=== PATIENT | female | born 1990 | race Caucasian/White ===

== ENCOUNTER 2019-08-24 04:59 | Inpatient (IN) | payer BC ==
[2019-08-24] MEDS ORDERED: ceFAZolin 2 GM in Premix Bag 1 BAG IV ONE (05:19)
[2019-08-24] MEDS ORDERED: Nalbuphine 10 MG/1 ML Vial IVPUSH PRN (05:19)
[2019-08-24] MEDS ORDERED: Citric Acid/Sodium Citrate Solution 30 ML Cup PO ONE (05:19)
[2019-08-24] MEDS ORDERED: Metoclopramide 10 MG/2 ML SDV IVPUSH ONE (05:19)
[2019-08-24] MEDS ORDERED: Sodium Chloride 0.9% 10 ML Syringe FLUSH PRN (05:19)
[2019-08-24] MEDS ORDERED: Lactated Ringers 1,000 ML IV SCH (05:30)
--- NOTE | 2019-08-24 05:36 | PCM.LDHP ---
L&D History of Present Illness - General Date of Service: 08/24/19 Admit Problem/Dx: Patient Status Order with Admit Dx/Problem 08/24/19 05:19 Patient Status [ADT] Routine Admission Diagnosis/Problem Admission Diagnosis/Problem Source of Information: Patient History Limitations: Reports: No Limitations - History of Present Illness Introduction:: Patient is a 29 y/o at uncertain gestational age - between 38 0/7 wk by US yesterday to potentially at due date presents with SROM. Patient seen first time yesterday on L&D. New ob labs done yesterday and also dating US. Here yesterday as she thought she was about due and had about 3 contractions. Was only 0.5 cm dilated. Was discharged home to present for routine care. Now presents with SROM which occurred about 2 hours ago. 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 11/28/2013 - 34.5 wks twin girl , 4 lbs 14 oz, 4 lbs 16 oz. 07/22/2019 - 37 wks c- section, 7 lbs. Current - Past Surgical History Female Surgical History: Reports: Section (x3) Social & Family History - Tobacco Use Smoking Status *Q: Never Smoker - Alcohol Use Alcohol Use History: No - Recreational Drug Use Recreational Drug Use: No H&P Review of Systems - Review of Systems: Review Of Systems: See Below General: Reports: No Symptoms Pulmonary: Reports: No Symptoms Cardiovascular: Reports: No Symptoms Gastrointestinal: Reports: Abdominal Pain (with contractions) Genitourinary: Reports: No Symptoms Musculoskeletal: Reports: No Symptoms Psychiatric: Reports: No Symptoms L&D Exam - Exam Exam: See Below - OB Specific Contraction Intensity: Moderate Movement: Active Heart Tones: Present Heart Tones per Min: 135 Heart Rate (FHR) Variability: Moderate (6-25 bmp) Presentation: Vertex - Exam General: Alert, Oriented, Cooperative Lungs: Clear to Auscultation, Normal Respiratory Effort Cardiovascular: Regular Rate, Regular Rhythm GI/Abdominal Exam: Soft, Non-Tender Genitourinary: Normal external exam, Other (grossly ruptured) Extremities: Normal Inspection Skin: Warm, Dry, Intact - Problem List (1) History of SNOMED Code(s): 057267458 ICD Code: Z98.891 - HISTORY OF UTERINE SCAR FROM PREVIOUS SURGERY Status: Acute Current Visit: No (2) No care in current SNOMED Code(s): 351389386 ICD Code: O09.30 - SUPRVSN OF PREG W INSUFFICIENT ANTENAT CARE, UNSP TRIMESTER Status: Acute Current Visit: No Qualifiers: (3) SROM (spontaneous rupture of membranes) SNOMED Code(s): 606770933 ICD Code: TUH7457 - Status: Acute Current Visit: Yes Problem List Initiated/Reviewed/Updated: Yes Orders Last 24hrs: Active Orders 24 hr Category Date Time Status Patient Status [ADT] Routine ADT 08/24/19 05:19 Active Communication Order [RC] ROUTINE Care 08/24/19 05:19 Active Heart Tones [RC] PER UNIT ROUTINE Care 08/24/19 05:19 Active Non Stress Test [RC] PER UNIT ROUTINE Care 08/24/19 05:19 Active Peripheral IV Care [RC] . DIRECTED Care 08/24/19 05:23 Active Procedure Site Prep Instruct [RC] ASDIRECTED Care 08/24/19 05:19 Active Verify Patient Consent Obtain [RC] PER UNIT ROUTINE Care 08/24/19 05:19 Active Vital Signs [RC] PFP Care 08/24/19 05:19 Active RAPID PLASMA REAGIN,RPR [CHEM] Routine Lab 08/24/19 05:19 Stop Req Citric Acid/Sodium Citrate [Bicitra Solution] Med 08/24/19 05:19 Once 30 ml PO ONETIME ONE Lactated Ringers [Ringers, Lactated] 1,000 ml Med 08/24/19 05:30 Active IV ASDIRECTED Nalbuphine [Nubain] Med 08/24/19 05:19 Active 10 mg IVPUSH Q2H PRN Sodium Chloride 0.9% [Saline Flush] Med 08/24/19 05:19 Active 10 ml FLUSH ASDIRECTED PRN ceFAZolin [Ancef] 2 gm Med 08/24/19 05:19 Active Premix Bag 1 bag IV ONETIME Peripheral IV Insertion Adult [OM.PC] Routine Oth 08/24/19 05:19 Ordered Schedule Procedure [COMM] Per Unit Routine Oth 08/24/19 05:19 Ordered Resuscitation Status Routine Resus Stat 08/24/19 05:19 Ordered Medication Orders Cefazolin Sodium/Dextrose 2 gm (/ Premix) 50 mls @ 100 mls/hr IV ONETIME ONE Stop: 08/24/19 05:48 Lactated Ringer's (Ringers, Lactated) 1,000 mls @ 125 mls/hr IV ASDIRECTED JESUS Nalbuphine HCl (Nubain) 10 mg IVPUSH Q2H PRN PRN Reason: Pain Sodium Chloride (Saline Flush) 10 ml FLUSH ASDIRECTED PRN PRN Reason: Keep Vein Open Assessment/Plan Comment:: SROM in setting of 3 prior * Ancef and Azithromycin 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
[2019-08-24] MEDS ORDERED: Azithromycin 500 MG in Sodium Chloride 0.9% 250 ML IV ONE (05:39)
[2019-08-24] MEDS ORDERED: Oxytocin 10 Units/1 ML SDV ONE (05:45)
[2019-08-24] MEDS ORDERED: ceFAZolin 1 GM Vial ONE (05:45)
[2019-08-24] MEDS ORDERED: Morphine PF 10 MG/10 ML SDV ONE (05:45)
--- NOTE | 2019-08-24 06:19 | PCM.PREANE ---
Preanesthetic Assessment - Procedure Proposed Procedure: Repeat - Anesthesia/Transfusion/Family Hx Anesthesia History: Prior Anesthesia Without Reaction Family History of Anesthesia Reaction: No Transfusion History: No Prior Transfusion(s) Anesthesia/Transfusion Comment: No previous problems with anesthesia or with intubation per patient - Review of Systems General: No Symptoms Pulmonary: No Symptoms Cardiovascular: No Symptoms Gastrointestinal: No Symptoms Other: Reports: None - Physical Assessment NPO Status Date: 08/24/19 (FS) Vital Signs: 126/80, 99, 16, 96% ASA Class: 1 Mental Status: Alert & Oriented x3 Airway Class: Mallampati = 2 Dentition: Reports: Normal Dentition ROM/Head Extension: Full Lungs: Clear to Auscultation, Normal Respiratory Effort Cardiovascular: Regular Rate, Regular Rhythm - Allergies Allergies/Adverse Reactions: Allergies Allergy/AdvReac Type Severity Reaction Status Date / Time No Known Allergies Allergy Verified 08/23/19 17:10 - Blood Blood Available: Yes Product(s) Available: PRBC - Anesthesia Plan Pre-Op Medication Ordered: Antacids - Acknowledgements Anesthesia Type Planned: Spinal Pt an Appropriate Candidate for the Planned Anesthesia: Yes Alternatives and Risks of Anesthesia Discussed w Pt/Guardian: Yes Pt/Guardian Understands and Agrees with Anesthesia Plan: Yes 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 11/28/2013 - 34.5 wks twin girl , 4 lbs 14 oz, 4 lbs 16 oz. 07/22/2019 - 37 wks c- section, 7 lbs. Current - Past Surgical History Female Surgical History: Reports: Section (x3) - SUBSTANCE USE Smoking Status *Q: Never Smoker Recreational Drug Use History: No - HOME MEDS Home Medications: Home Meds Vits #93/Iron Fum/FA [ Formula Tablet] 1 each PO DAILY [History] - CURRENT (IN HOUSE) MEDS Current Meds: Current Medications Lactated Ringer's (Ringers, Lactated) 1,000 mls @ 125 mls/hr IV ASDIRECTED JESUS Last Admin: 08/24/19 05:35 Dose: 999 mls/hr Azithromycin 500 mg/ Sodium (Chloride) 250 mls @ 250 mls/hr IV ONETIME ONE Stop: 08/24/19 06:38 Last Admin: 08/24/19 05:54 Dose: 250 mls/hr Nalbuphine HCl (Nubain) 10 mg IVPUSH Q2H PRN PRN Reason: Pain Sodium Chloride (Saline Flush) 10 ml FLUSH ASDIRECTED PRN PRN Reason: Keep Vein Open Discontinued Medications Cefazolin Sodium (Ancef) Confirm Administered Dose 2 gm .ROUTE .STK-MED ONE Stop: 08/24/19 05:46 Citric Acid/Sodium Citrate (Bicitra Solution) 30 ml PO ONETIME ONE Stop: 08/24/19 05:20 Last Admin: 08/24/19 05:45 Dose: 30 ml Cefazolin Sodium/Dextrose 2 gm (/ Premix) 50 mls @ 100 mls/hr IV ONETIME ONE Stop: 08/24/19 05:48 Metoclopramide HCl (Reglan) 10 mg IVPUSH ONETIME ONE Stop: 08/24/19 05:20 Last Admin: 08/24/19 05:45 Dose: 10 mg Morphine Sulfate (Duramorph Pf) Confirm Administered Dose 10 mg .ROUTE .STK-MED ONE Stop: 08/24/19 05:46 Oxytocin (Pitocin) Confirm Administered Dose 20 unit .ROUTE .STK-MED ONE Stop: 08/24/19 05:46
[2019-08-24] MEDS ORDERED: Ketorolac 30 MG/ML SDV ONE (06:30)
[2019-08-24] MEDS ORDERED: Dexamethasone 4 MG/ML SDV ONE (06:34)
[2019-08-24] MEDS ORDERED: Ondansetron 4 MG/2 ML SDV ONE (06:34)
--- NOTE | 2019-08-24 07:02 | PCM.OPNOTE ---
- General Post-Op/Procedure Note Date of Surgery/Procedure: 08/24/19 Operative Procedure(s): Repeat low transverse Findings: Minimal adhesive disease between the rectus and fascia. Uterine window about 3 x 4 cm at left aspect of uterus with BBOW present. Can see parts moving underneath. Otherwise extremely thin lower uterine segment. Normal appearance of ovaries and fallopian tubes. Baby girl in a vertex presentation with eight of 6 lbs 14 oz and APGARS of 8 & 9. IF BECOMES AGAIN WOULD RECOMMEND EARLY TERM DELIVERY DUE TO FINDINGS IN OR Pre Op Diagnosis: Unknown gestational age 38 wks - 40 wks likely. No care. History of x3. SROM Post-Op Diagnosis: Same Anesthesia Technique: Spinal Primary Surgeon: Ronel Arciniega Secondary Surgeon: Gino Emery Anesthesia Provider: Neeraj Streeter Reason Warranty Manager Was Necessary: Speed, safety of procedure Pathology: Cord blood collected. Placenta discarded Fluid Replacement, Intraop: 1,750 Output, Urine Amount: 175 EBL in mLs: 500 Complications: None Condition: Good Free Text/Narrative:: The risks, benefits, indications, potential complications, and alternatives were explained to the patient and informed consent obtained. After induction of anesthesia, the patient was placed in a supine position and then draped and prepped in the usual sterile manner. A Pfannenstiel incision was made and carried down through the subcutaneous tissue to the fascia. Fascial incision was made and extended transversely. The fascia was from the underlying rectus tissue superiorly and inferiorly. The peritoneum was identified and entered. Peritoneal incision was extended longitudinally. No bladder flap made given finding of uterine window. A low transverse uterine incision was made sharply next to seen uterine window with a scalpel and extended bluntly in a cephalocaudad direction. A baby girl was delivered from a vertex presentation with APGARS as above. After the umbilical cord was clamped and cut cord blood was obtained for evaluation. The placenta was removed intact and appeared normal. The uterus was exteriorized and cleared of clots. The fallopian tubes and ovaries appeared normal. The uterine incision was closed with running locked sutures of 0 Vicryl. Hemostasis noted. The uterus was then placed back into the abdomen. The infracolic gutters were cleared of blood clots. The fascia was then reapproximated with running sutures of 0 Vicryl. The subcutaneous tissue was irrigated with sterile warm normal saline, hemostasis obtained with cautery. This layer was also closed with a running 0 Vicryl. The skin was reapproximated with running Subcuticular 4-0 monocryl sutures. Instrument, sponge, and needle counts were correct prior the abdominal closure and at the conclusion of the case.
[2019-08-24] MEDS ORDERED: diphenhydrAMINE 50 MG/ML SDV IVPUSH PRN ×2 (07:05→09:02)
[2019-08-24] MEDS ORDERED: fentaNYL 100 MCG/2 ML SDV IVPUSH PRN (07:05)
[2019-08-24] MEDS ORDERED: Ondansetron 4 MG/2 ML SDV IVPUSH PRN (07:05)
--- NOTE | 2019-08-24 07:05 | PCM.POSTAN ---
POST ANESTHESIA ASSESSMENT - MENTAL STATUS Mental Status: Alert, Oriented - RESPIRATORY Respiratory Status: Respiratory Rate WNL, Airway Patent, O2 Saturation Stable - CARDIOVASCULAR CV Status: Pulse Rate WNL, Blood Pressure Stable - GASTROINTESTINAL GI Status: No Symptoms - PAIN Pain Score: 0 - POST OP HYDRATION Hydration Status: Adequate & Stable (Recovering as expect. No concerns at this time.)
[2019-08-24] MEDS ORDERED: ePHEDrine 50 MG/ML SDV IVPUSH PRN (09:02)
[2019-08-24] MEDS ORDERED: Ondansetron 4 MG/2 ML SDV IV PRN (09:02)
[2019-08-24] MEDS ORDERED: Dextrose 5%-Lactated Ringers 1,000 ML IV SCH (09:02)
[2019-08-24] MEDS: Ketorolac 30 MG/ML SDV IVPUSH SCH ×3 (16:38→22:26)
[2019-08-24] MEDS: Acetaminophen/oxyCODONE 325-5 MG Tab PO PRN (19:45)
[2019-08-24] MEDS: Ibuprofen 800 MG Tab PO SCH (22:30)
[2019-08-24] MEDS ORDERED: Calcium Carbonate 500 MG Tab.Chew PO PRN (23:49)
[2019-08-25] MEDS: Acetaminophen/oxyCODONE 325-5 MG Tab PO PRN ×3 (04:20→18:02)
[2019-08-25] MEDS: Ibuprofen 800 MG Tab PO SCH (05:55)
--- NOTE | 2019-08-25 06:33 | PCM.PNPP ---
- General Info Date of Service: 08/25/19 Functional Status: Reports: Pain Controlled, Tolerating Diet, Ambulating, Urinating - Review of Systems General: Reports: No Symptoms Pulmonary: Reports: No Symptoms Cardiovascular: Reports: No Symptoms Gastrointestinal: Reports: No Symptoms Genitourinary: Reports: No Symptoms Musculoskeletal: Reports: No Symptoms Neurological: Reports: No Symptoms - Patient Data Vital Signs - Most Recent: Last Vital Signs Temp 36.3 C 08/25/19 00:01 Pulse 93 08/25/19 00:40 Resp 16 08/25/19 05:00 BP 110/60 08/25/19 00:01 Pulse Ox 97 08/25/19 05:00 Weight - Most Recent: 80.286 kg I&O - Last 24 Hours: Intake & Output 08/24/19 08/24/19 08/25/19 14:59 22:59 06:59 Intake Total 2690 Output Total 275 750 350 Balance 7565 -750 -350 Med Orders - Current: Current Medications Calcium Carbonate/Glycine (Tums) 1,000 mg PO Q2HR PRN PRN Reason: Indigestion Last Admin: 08/24/19 23:56 Dose: 1,000 mg Diphenhydramine HCl (Benadryl) 25 mg IVPUSH Q6H PRN PRN Reason: Pruritis Last Admin: 08/24/19 10:49 Dose: 25 mg Diphenhydramine HCl (Benadryl) 25 mg IVPUSH Q6H PRN PRN Reason: Itching or Nausea Ephedrine Sulfate (Ephedrine Sulfate) 5 mg IVPUSH SEECOMMENT PRN PRN Reason: Other Fentanyl (Sublimaze) 50 mcg IVPUSH Q5M PRN PRN Reason: Pain Ibuprofen (Motrin) 600 mg PO Q6H PRN PRN Reason: mild pain or fever Ibuprofen (Motrin) 800 mg PO Q8H JESUS Last Admin: 08/25/19 05:55 Dose: 800 mg Ondansetron HCl (Zofran) 4 mg IVPUSH ONETIME PRN PRN Reason: Nausea/Vomiting Ondansetron HCl (Zofran) 4 mg IV Q8H PRN PRN Reason: Nausea/Vomiting Oxycodone/Acetaminophen (Percocet 325-5 Mg) 2 tab PO Q4H PRN PRN Reason: Pain (severe 7-10) Last Admin: 08/25/19 04:20 Dose: 1 tab Discontinued Medications Cefazolin Sodium (Ancef) Confirm Administered Dose 2 gm .ROUTE .STK-MED ONE Stop: 08/24/19 05:46 Citric Acid/Sodium Citrate (Bicitra Solution) 30 ml PO ONETIME ONE Stop: 08/24/19 05:20 Last Admin: 08/24/19 05:45 Dose: 30 ml Dexamethasone (Dexamethasone) Confirm Administered Dose 4 mg .ROUTE .STK-MED ONE Stop: 08/24/19 06:35 Cefazolin Sodium/Dextrose 2 gm (/ Premix) 50 mls @ 100 mls/hr IV ONETIME ONE Stop: 08/24/19 05:48 Lactated Ringer's (Ringers, Lactated) 1,000 mls @ 125 mls/hr IV ASDIRECTED [facility] Last Admin: 08/24/19 05:35 Dose: 999 mls/hr Azithromycin 500 mg/ Sodium (Chloride) 250 mls @ 250 mls/hr IV ONETIME ONE Stop: 08/24/19 06:38 Last Admin: 08/24/19 05:54 Dose: 250 mls/hr Dextrose/Lactated Ringer's (Dextrose 5%-Lactated Ringers) 1,000 mls @ 125 mls/ hr IV ASDIRECTED [facility] Stop: 08/24/19 17:01 Last Admin: 08/24/19 09:17 Dose: 125 mls/hr Ketorolac Tromethamine (Toradol) Confirm Administered Dose 30 mg .ROUTE .STK- MED ONE Stop: 08/24/19 06:31 Ketorolac Tromethamine (Toradol) 30 mg IVPUSH Q6H [facility] Stop: 08/25/19 00:31 Last Admin: 08/24/19 22:26 Dose: Not Given Metoclopramide HCl (Reglan) 10 mg IVPUSH ONETIME ONE Stop: 08/24/19 05:20 Last Admin: 08/24/19 05:45 Dose: 10 mg Morphine Sulfate (Duramorph Pf) Confirm Administered Dose 10 mg .ROUTE .STK-MED ONE Stop: 08/24/19 05:46 Nalbuphine HCl (Nubain) 10 mg IVPUSH Q2H PRN PRN Reason: Pain Ondansetron HCl (Zofran) Confirm Administered Dose 4 mg .ROUTE .STK-MED ONE Stop: 08/24/19 06:35 Oxytocin (Pitocin) Confirm Administered Dose 20 unit .ROUTE .STK-MED ONE Stop: 08/24/19 05:46 Sodium Chloride (Saline Flush) 10 ml FLUSH ASDIRECTED PRN PRN Reason: Keep Vein Open - Infant Interaction Disposition, : [place] in Room with Family Infant Interaction: Holding Infant Infant Feeding: Breastfed Infant; Nursed Well Support Person: Significant Other - Recovery Exam Fundal Tone: Firm Fundal Level: 2 Fingerbreadths Below Umbilicus Fundal Placement: Midline Lochia Amount: Scant, Small Lochia Color: Rubra/Red Perineum Description: Intact, Minimal Bruising/Swelling Episiotomy/Laceration: None Bladder Status: Voiding Urinary Elimination: Voided - Exam General: Alert, Oriented, Cooperative Lungs: Clear to Auscultation, Normal Respiratory Effort Cardiovascular: Regular Rate, Regular Rhythm GI/Abdominal Exam: Soft, Non-Tender Extremities: Normal Inspection Skin: Warm, Dry, Intact Wound/Incisions: Healing Well, Drainage (small amount of serosanguinous drainage ) - Problem List & Annotations (1) History of SNOMED Code(s): 448699383 Code(s): Z98.891 - HISTORY OF UTERINE SCAR FROM PREVIOUS SURGERY Status: Acute Current Visit: No (2) No care in current SNOMED Code(s): 768612154 Code(s): O09.30 - SUPRVSN OF PREG W INSUFFICIENT ANTENAT CARE, UNSP TRIMESTER Status: Acute Current Visit: No Qualifiers: (3) SROM (spontaneous rupture of membranes) SNOMED Code(s): 063350410 Code(s): DOR5859 - Status: Acute Current Visit: Yes (4) Dehiscence of uterine wound SNOMED Code(s): 64671614 Code(s): O90.0 - DISRUPTION OF DELIVERY WOUND Status: Acute Current Visit: Yes (5) S/P repeat low transverse SNOMED Code(s): 523380717, 20176041, 891558336, 905266393, 562099843 Code(s): Z98.891 - HISTORY OF UTERINE SCAR FROM PREVIOUS SURGERY Status: Acute Current Visit: Yes - Problem List Review Problem List Initiated/Reviewed/Updated: Yes - My Orders Last 24 Hours: My Active Orders 08/24/19 09:02 Activity as Tolerated [RC] .Routine Antiembolic Devices [RC] PER UNIT ROUTINE Communication Order [RC] PER UNIT ROUTINE Intake and Output [RC] Q4H Notify Provider Intake and Out [RC] ASDIRECTED RT Incentive Spirometry [RC] Q2HWA Vital Signs [RC] PER UNIT ROUTINE Acetaminophen/oxyCODONE [Percocet 325-5 MG] 2 tab PO Q4H PRN Ondansetron [Zofran] 4 mg IV Q8H PRN diphenhydrAMINE [Benadryl] 25 mg IVPUSH Q6H PRN ePHEDrine [ePHEDrine sulfate] 5 mg IVPUSH SEECOMMENT PRN Assess Lochia [WOMSER] Per Unit Routine Assess Uterine Involution [WOMSER] Per Unit Routine Breast Pump [WOMSER] Per Unit Routine Medication Administration Instruction [OM.PC] Routine Peripheral IV Discontinue [OM.PC] Routine Sequential Compression Device [OM.PC] Per Unit Routine 08/24/19 22:30 Ibuprofen [Motrin] 800 mg PO Q8H 08/24/19 23:49 Calcium Carbonate [Tums] 1,000 mg PO Q2HR PRN 08/24/19 Breakfast Regular Diet [DIET] 08/25/19 05:50 CBC W/O DIFF,HEMOGRAM [HEME] AM 08/25/19 06:30 Ibuprofen [Motrin] 600 mg PO Q6H PRN 08/25/19 07:00 Urinary Catheter Removal [RC] Per Unit Routine - Assessment Assessment:: POD#1 - Plan Plan:: * Routine cares * Encourage breast feeding * Discharge home in 1-2 days
--- NOTE | 2019-08-25 09:54 | PCM48HPAN ---
Post Anesthesia Note - EVALUATION WITHIN 48HRS OF ANESTHETIC Vital Signs in Normal Range: Yes Patient Participated in Evaluation: Yes Respiratory Function Stable: Yes Airway Patent: Yes Cardiovascular Function Stable: Yes Hydration Status Stable: Yes Pain Control Satisfactory: Yes Nausea and Vomiting Control Satisfactory: Yes Mental Status Recovered: Yes Vital Signs: Last Vital Signs Temp 36.7 C 08/25/19 06:12 Pulse 78 08/25/19 06:12 Resp 16 08/25/19 06:12 BP 119/69 08/25/19 06:12 Pulse Ox 100 08/25/19 06:12
[2019-08-25] MEDS: Ibuprofen 600 MG Tab PO PRN ×2 (14:48→21:59)
[2019-08-25] MEDS ORDERED: Docusate Sodium 100 MG Cap PO PRN (21:44)
[2019-08-26] MEDS: Acetaminophen/oxyCODONE 325-5 MG Tab PO PRN ×2 (00:14→07:21)
--- NOTE | 2019-08-26 06:54 | PCM.DCSUM1 ---
Discharge Summary - Discharge Data Discharge Date: 08/26/19 Discharge Disposition: Home, Self-Care 01 Condition: Good - Referral to Home Health Primary Care Physician: Ronel Arciniega MD - Discharge Diagnosis/Problem(s) (1) History of SNOMED Code(s): 680637042 ICD Code: Z98.891 - HISTORY OF UTERINE SCAR FROM PREVIOUS SURGERY Status: Acute (2) No care in current SNOMED Code(s): 894941108 ICD Code: O09.30 - SUPRVSN OF PREG W INSUFFICIENT ANTENAT CARE, UNSP TRIMESTER Status: Acute Qualifiers: Trimester: third trimester (3) SROM (spontaneous rupture of membranes) SNOMED Code(s): 541224416 ICD Code: MXN8781 - Status: Acute (4) Dehiscence of uterine wound SNOMED Code(s): 30403990 ICD Code: O90.0 - DISRUPTION OF DELIVERY WOUND Status: Acute (5) S/P repeat low transverse SNOMED Code(s): 912405408, 64073292, 451432471, 961856445, 442493176 ICD Code: Z98.891 - HISTORY OF UTERINE SCAR FROM PREVIOUS SURGERY Status: Acute - Patient Summary/Data Operative Procedure(s) Performed: Repeat low transverse Complications: None Consults: None Recommended Follow-up Testing/Procedures: Follow up in 1 week for incision check Hospital Course: Patient is a 29 y/o who had no care in current estimated to be between 38-41 wks who presented with SROM in setting of 3 prior . Taken for repeat notable for significant uterine window and thinning of MARLENE. Surgery was uncomplicated. Post op she did well and was meeting all goals by POD#2. She was discharged home per her request - Patient Instructions Diet: Regular Diet as Tolerated Activity: No Lifting Over 10 Pounds Activity, Other: Pelvic rest for 6 weeks Driving: Do Not Drive (While taking narcotics ) Showering/Bathing: May Shower, No Tub Bathing/Swimming Wound/Incision Care: Keep Operative Site/Wound Site Clean and Dry Notify Provider of: Fever, Increased Pain, Swelling and Redness, Drainage, Nausea and/or Vomiting - Discharge Plan *PRESCRIPTION DRUG MONITORING PROGRAM REVIEWED*: No *COPY OF PRESCRIPTION DRUG MONITORING REPORT IN PATIENT CLARISSA: No Prescriptions/Med Rec: Acetaminophen/oxyCODONE [Percocet 325-5 MG] 2 tab PO Q4H PRN #20 tablet PRN Reason: Pain (Severe 7-10) Home Medications: Home Meds Vits #93/Iron Fum/FA [ Formula Tablet] 1 each PO DAILY [History] Acetaminophen/oxyCODONE [Percocet 325-5 MG] 2 tab PO Q4H PRN #20 tablet [Rx] Ibuprofen [Motrin] 600 mg PO Q6H PRN tablet 08/26/19 [Rx] Patient Handouts: Delivery, Care After Referrals: Ronel Arciniega MD [Primary Care Provider] - (1 week for incision check ) - Discharge Summary/Plan Comment DC Time >30 min.: No - Patient Data Vitals - Most Recent: Last Vital Signs Temp 36.8 C 08/26/19 04:13 Pulse 80 08/26/19 04:13 Resp 16 08/26/19 04:13 BP 102/52 L 08/26/19 04:13 Pulse Ox 97 08/26/19 04:13 Weight - Most Recent: 80.286 kg I&O - Last 24 hours: Intake & Output 08/25/19 08/25/19 08/26/19 14:59 22:59 06:59 Intake Total 180 400 Output Total 450 500 Balance -270 -100 Lab Results - Last 24 hrs: Laboratory Results - last 24 hr 08/25/19 Range/Units 05:50 WBC 11.78 H (3.98-10.04) K/mm3 RBC 3.35 L (3.98-5.22) M/mm3 Hgb 8.8 L (11.2-15.7) gm/dl Hct 28.3 L (34.1-44.9) % MCV 84.5 (79.4-94.8) fl MCH 26.3 (25.6-32.2) pg MCHC 31.1 L (32.2-35.5) g/dl RDW Std Deviation 44.5 (36.4-46.3) fL Plt Count 190 (182-369) K/mm3 MPV 9.6 (9.4-12.3) fl Med Orders - Current: Current Medications Calcium Carbonate/Glycine (Tums) 1,000 mg PO Q2HR PRN PRN Reason: Indigestion Last Admin: 08/24/19 23:56 Dose: 1,000 mg Diphenhydramine HCl (Benadryl) 25 mg IVPUSH Q6H PRN PRN Reason: Pruritis Last Admin: 08/24/19 10:49 Dose: 25 mg Diphenhydramine HCl (Benadryl) 25 mg IVPUSH Q6H PRN PRN Reason: Itching or Nausea Docusate Sodium (Colace) 100 mg PO BID PRN PRN Reason: Constipation Last Admin: 08/25/19 21:58 Dose: 100 mg Ephedrine Sulfate (Ephedrine Sulfate) 5 mg IVPUSH SEECOMMENT PRN PRN Reason: Other Fentanyl (Sublimaze) 50 mcg IVPUSH Q5M PRN PRN Reason: Pain Ibuprofen (Motrin) 600 mg PO Q6H PRN PRN Reason: mild pain or fever Last Admin: 08/25/19 21:59 Dose: 600 mg Ondansetron HCl (Zofran) 4 mg IVPUSH ONETIME PRN PRN Reason: Nausea/Vomiting Ondansetron HCl (Zofran) 4 mg IV Q8H PRN PRN Reason: Nausea/Vomiting Oxycodone/Acetaminophen (Percocet 325-5 Mg) 2 tab PO Q4H PRN PRN Reason: Pain (severe 7-10) Last Admin: 08/26/19 00:14 Dose: 2 tab Discontinued Medications Cefazolin Sodium (Ancef) Confirm Administered Dose 2 gm .ROUTE .STK-MED ONE Stop: 08/24/19 05:46 Citric Acid/Sodium Citrate (Bicitra Solution) 30 ml PO ONETIME ONE Stop: 08/24/19 05:20 Last Admin: 08/24/19 05:45 Dose: 30 ml Dexamethasone (Dexamethasone) Confirm Administered Dose 4 mg .ROUTE .STK-MED ONE Stop: 08/24/19 06:35 Cefazolin Sodium/Dextrose 2 gm (/ Premix) 50 mls @ 100 mls/hr IV ONETIME ONE Stop: 08/24/19 05:48 Last Admin: 08/25/19 10:57 Dose: Not Given Lactated Ringer's (Ringers, Lactated) 1,000 mls @ 125 mls/hr IV ASDIRECTED [facility] Last Admin: 08/24/19 05:35 Dose: 999 mls/hr Azithromycin 500 mg/ Sodium (Chloride) 250 mls @ 250 mls/hr IV ONETIME ONE Stop: 08/24/19 06:38 Last Admin: 08/24/19 05:54 Dose: 250 mls/hr Dextrose/Lactated Ringer's (Dextrose 5%-Lactated Ringers) 1,000 mls @ 125 mls/ hr IV ASDIRECTED [facility] Stop: 08/24/19 17:01 Last Admin: 08/24/19 09:17 Dose: 125 mls/hr Ibuprofen (Motrin) 800 mg PO Q8H [facility] Last Admin: 08/25/19 05:55 Dose: 800 mg Ketorolac Tromethamine (Toradol) Confirm Administered Dose 30 mg .ROUTE .STK- MED ONE Stop: 08/24/19 06:31 Ketorolac Tromethamine (Toradol) 30 mg IVPUSH Q6H [facility] Stop: 08/25/19 00:31 Last Admin: 08/24/19 22:26 Dose: Not Given Metoclopramide HCl (Reglan) 10 mg IVPUSH ONETIME ONE Stop: 08/24/19 05:20 Last Admin: 08/24/19 05:45 Dose: 10 mg Morphine Sulfate (Duramorph Pf) Confirm Administered Dose 10 mg .ROUTE .STK-MED ONE Stop: 08/24/19 05:46 Nalbuphine HCl (Nubain) 10 mg IVPUSH Q2H PRN PRN Reason: Pain Ondansetron HCl (Zofran) Confirm Administered Dose 4 mg .ROUTE .STK-MED ONE Stop: 08/24/19 06:35 Oxytocin (Pitocin) Confirm Administered Dose 20 unit .ROUTE .STK-MED ONE Stop: 08/24/19 05:46 Sodium Chloride (Saline Flush) 10 ml FLUSH ASDIRECTED PRN PRN Reason: Keep Vein Open
--- NOTE | 2019-08-26 06:54 | PCM.PNPP ---
- General Info Date of Service: 08/26/19 Functional Status: Reports: Pain Controlled, Tolerating Diet, Ambulating, Urinating - Review of Systems General: Reports: No Symptoms Pulmonary: Reports: No Symptoms Cardiovascular: Reports: No Symptoms Gastrointestinal: Reports: Abdominal Pain (managed with medications ) Genitourinary: Reports: No Symptoms Musculoskeletal: Reports: No Symptoms Neurological: Reports: No Symptoms - Patient Data Vital Signs - Most Recent: Last Vital Signs Temp 36.8 C 08/26/19 04:13 Pulse 80 08/26/19 04:13 Resp 16 08/26/19 04:13 BP 102/52 L 08/26/19 04:13 Pulse Ox 97 08/26/19 04:13 Weight - Most Recent: 80.286 kg I&O - Last 24 Hours: Intake & Output 08/25/19 08/25/19 08/26/19 14:59 22:59 06:59 Intake Total 180 400 Output Total 450 500 Balance -270 -100 Lab Results - Last 24 Hours: Laboratory Results - last 24 hr 08/25/19 Range/Units 05:50 WBC 11.78 H (3.98-10.04) K/mm3 RBC 3.35 L (3.98-5.22) M/mm3 Hgb 8.8 L (11.2-15.7) gm/dl Hct 28.3 L (34.1-44.9) % MCV 84.5 (79.4-94.8) fl MCH 26.3 (25.6-32.2) pg MCHC 31.1 L (32.2-35.5) g/dl RDW Std Deviation 44.5 (36.4-46.3) fL Plt Count 190 (182-369) K/mm3 MPV 9.6 (9.4-12.3) fl Med Orders - Current: Current Medications Calcium Carbonate/Glycine (Tums) 1,000 mg PO Q2HR PRN PRN Reason: Indigestion Last Admin: 08/24/19 23:56 Dose: 1,000 mg Diphenhydramine HCl (Benadryl) 25 mg IVPUSH Q6H PRN PRN Reason: Pruritis Last Admin: 08/24/19 10:49 Dose: 25 mg Diphenhydramine HCl (Benadryl) 25 mg IVPUSH Q6H PRN PRN Reason: Itching or Nausea Docusate Sodium (Colace) 100 mg PO BID PRN PRN Reason: Constipation Last Admin: 08/25/19 21:58 Dose: 100 mg Ephedrine Sulfate (Ephedrine Sulfate) 5 mg IVPUSH SEECOMMENT PRN PRN Reason: Other Fentanyl (Sublimaze) 50 mcg IVPUSH Q5M PRN PRN Reason: Pain Ibuprofen (Motrin) 600 mg PO Q6H PRN PRN Reason: mild pain or fever Last Admin: 08/25/19 21:59 Dose: 600 mg Ondansetron HCl (Zofran) 4 mg IVPUSH ONETIME PRN PRN Reason: Nausea/Vomiting Ondansetron HCl (Zofran) 4 mg IV Q8H PRN PRN Reason: Nausea/Vomiting Oxycodone/Acetaminophen (Percocet 325-5 Mg) 2 tab PO Q4H PRN PRN Reason: Pain (severe 7-10) Last Admin: 08/26/19 00:14 Dose: 2 tab Discontinued Medications Cefazolin Sodium (Ancef) Confirm Administered Dose 2 gm .ROUTE .STK-MED ONE Stop: 08/24/19 05:46 Citric Acid/Sodium Citrate (Bicitra Solution) 30 ml PO ONETIME ONE Stop: 08/24/19 05:20 Last Admin: 08/24/19 05:45 Dose: 30 ml Dexamethasone (Dexamethasone) Confirm Administered Dose 4 mg .ROUTE .STK-MED ONE Stop: 08/24/19 06:35 Cefazolin Sodium/Dextrose 2 gm (/ Premix) 50 mls @ 100 mls/hr IV ONETIME ONE Stop: 08/24/19 05:48 Last Admin: 08/25/19 10:57 Dose: Not Given Lactated Ringer's (Ringers, Lactated) 1,000 mls @ 125 mls/hr IV ASDIRECTED [facility] Last Admin: 08/24/19 05:35 Dose: 999 mls/hr Azithromycin 500 mg/ Sodium (Chloride) 250 mls @ 250 mls/hr IV ONETIME ONE Stop: 08/24/19 06:38 Last Admin: 08/24/19 05:54 Dose: 250 mls/hr Dextrose/Lactated Ringer's (Dextrose 5%-Lactated Ringers) 1,000 mls @ 125 mls/ hr IV ASDIRECTED [facility] Stop: 08/24/19 17:01 Last Admin: 08/24/19 09:17 Dose: 125 mls/hr Ibuprofen (Motrin) 800 mg PO Q8H [facility] Last Admin: 08/25/19 05:55 Dose: 800 mg Ketorolac Tromethamine (Toradol) Confirm Administered Dose 30 mg .ROUTE .STK- MED ONE Stop: 08/24/19 06:31 Ketorolac Tromethamine (Toradol) 30 mg IVPUSH Q6H [facility] Stop: 08/25/19 00:31 Last Admin: 08/24/19 22:26 Dose: Not Given Metoclopramide HCl (Reglan) 10 mg IVPUSH ONETIME ONE Stop: 08/24/19 05:20 Last Admin: 08/24/19 05:45 Dose: 10 mg Morphine Sulfate (Duramorph Pf) Confirm Administered Dose 10 mg .ROUTE .STK-MED ONE Stop: 08/24/19 05:46 Nalbuphine HCl (Nubain) 10 mg IVPUSH Q2H PRN PRN Reason: Pain Ondansetron HCl (Zofran) Confirm Administered Dose 4 mg .ROUTE .STK-MED ONE Stop: 08/24/19 06:35 Oxytocin (Pitocin) Confirm Administered Dose 20 unit .ROUTE .STK-MED ONE Stop: 08/24/19 05:46 Sodium Chloride (Saline Flush) 10 ml FLUSH ASDIRECTED PRN PRN Reason: Keep Vein Open - Interaction Disposition, : in Room with Family Interaction: Holding Infant Feeding: Breastfed Infant; Nursed Well Support Person: Significant Other - Recovery Exam Fundal Tone: Firm Fundal Level: 2 Fingerbreadths Below Umbilicus Fundal Placement: Midline Lochia Amount: Small Lochia Color: Rubra/Red Perineum Description: Intact, Minimal Bruising/Swelling Episiotomy/Laceration: None Bladder Status: Voiding Urinary Elimination: Voided - Exam General: Alert, Oriented, Cooperative Lungs: Clear to Auscultation, Normal Respiratory Effort Cardiovascular: Regular Rate, Regular Rhythm GI/Abdominal Exam: Soft, Tender (appropriate post op) Extremities: Normal Inspection Skin: Warm, Dry, Intact Wound/Incisions: Healing Well, No Drainage - Problem List & Annotations (1) History of SNOMED Code(s): 300770196 Code(s): Z98.891 - HISTORY OF UTERINE SCAR FROM PREVIOUS SURGERY Status: Acute (2) No care in current SNOMED Code(s): 208861689 Code(s): O09.30 - SUPRVSN OF PREG W INSUFFICIENT ANTENAT CARE, UNSP TRIMESTER Status: Acute Qualifiers: (3) SROM (spontaneous rupture of membranes) SNOMED Code(s): 545801540 Code(s): RVL9662 - Status: Acute (4) Dehiscence of uterine wound SNOMED Code(s): 50755063 Code(s): O90.0 - DISRUPTION OF DELIVERY WOUND Status: Acute (5) S/P repeat low transverse SNOMED Code(s): 633142646, 46999756, 900102941, 576961417, 098231096 Code(s): Z98.891 - HISTORY OF UTERINE SCAR FROM PREVIOUS SURGERY Status: Acute - Problem List Review Problem List Initiated/Reviewed/Updated: Yes - My Orders Last 24 Hours: My Active Orders 08/25/19 06:30 Ibuprofen [Motrin] 600 mg PO Q6H PRN 08/25/19 21:44 Docusate Sodium [Colace] 100 mg PO BID PRN - Assessment Assessment:: POD#2 - Plan Plan:: * Routine cares * Encourage breast feeding * Discharge home today
[2019-08-26] MEDS ORDERED: FLU Vacc QS2019-20(6MOS+)/PF 60 MCG/0.5 ML SYRINGE IM ONE (10:00)
== END 2019-08-26 11:30 | disposition home or self-care (01) | DRG 540 ==
LOC: JD.OBCHECK 04:59 → JD.OB 05:19
PROVIDERS: ADMIT Obstetrics & Gynecology; ATTEND Obstetrics & Gynecology
PROC: 10D00Z1 Extraction of Products of Conception, Low, Open Approach (ICD-10-PCS; principal; 2019-08-24)
PROC: 3E02340 Introduction of Influenza Vaccine into Muscle, Percutaneous Approach (ICD-10-PCS; 2019-08-26)
DX: O34.211 Maternal care for low transverse scar from previous cesarean delivery (principal); O90.0 Disruption of cesarean delivery wound; Z37.0 Single live birth; Z3A.38 38 weeks gestation of pregnancy; Z23 Encounter for immunization
CPT/HCPCS: 01961; 36415; 59025; 85027; 90686; A9270-GY; J0456; J0690; J1100; J1200; J1885; J2270; J2405; J2590; J2765; J7050; J7120; J7121